=== PATIENT | female | born 1960 | race Two or more races ===

== ENCOUNTER 2021-06-12 08:00 | Outpatient (CLI) | payer OTHER ==
[~2021-06-12 08:00] MED LIST: COZAAR25 MG; EC-NAPROSYN500 MG PO; ETODOLAC400 MG PO; FORTAMET500 MG; GABAPENTIN100 MG PO; NORFLEX100MG PO; TOPROL XL25 M1
== END 2021-06-12 08:30 | disposition home or self-care (01) ==
LOC: PPH VACUNA 08:00
PROVIDERS: ATTEND Emergency Medicine Pediatric Emergency Medicine
DX: Z23 Encounter for immunization (principal)